=== PATIENT | female | born 1985 | race Caucasian/White ===

== ENCOUNTER 2017-01-24 09:36 | Emergency (ER) | payer OTHER ==
[2017-01-24 09:44] VITALS: BP 126/77
[2017-01-24] MEDS ORDERED: RABIES IMMUNE GLOBULIN INJ/PF 300 UNIT/2 ML SDV IM ONE (10:38)
[2017-01-24] MEDS ORDERED: RABIES VACCINE (PCEC)/PF 2.5 UNIT/1 ML KIT IM ONE (10:40)
--- NOTE | 2017-01-24 10:54 | ER Document Report ---
HPI - HPI Patient complains to provider of: exposure to rabid raccoon that her dog ate and vomited up Onset: Other - Last Tuesday Pain Level: Denies Context: 31-year-old [employer] female was sent by [facility] for rabies shots. Her dog ate a raccoon and then vomited in which she cleaned up the dog and the vomit and animal control called her and said that the raccoon was tested and was positive for rabies. The manner in which her exposure occurred was bare hands with dry skin but no open wounds. Associated Symptoms: None Exacerbated by: Denies Relieved by: Denies Similar symptoms previously: No Recently seen / treated by doctor: No - ROS ROS below otherwise negative: Yes Systems Reviewed and Negative: Yes All other systems reviewed and negative - REPRODUCTIVE LMP: 12/28/16 - DERM Skin Color: Normal Past Medical History - General Information source: Patient - Social History Smoking Status: Never Smoker Chew tobacco use (# tins/day): No Frequency of alcohol use: None Drug Abuse: None Lives with: Alone Family History: Reviewed & Not Pertinent Patient has suicidal ideation: No Patient has homicidal ideation: No - Medical History Medical History: Negative Renal/ Medical History: Denies: Hx Peritoneal Dialysis Surgical Hx: Negative Vertical Provider Document - CONSTITUTIONAL Agree With Documented VS: Yes Exam Limitations: No Limitations - INFECTION CONTROL TRAVEL OUTSIDE OF THE [place] IN LAST 30 DAYS: No - HEENT HEENT: Atraumatic, Normocephalic - NECK Neck: Supple - RESPIRATORY O2 Sat by Pulse Oximetry: 97 - MUSCULOSKELETAL/EXTREMETIES Musculoskeletal/Extremeties: MAEW, FROM, Non-Tender - NEURO Level of Consciousness: Awake, Alert - DERM Integumentary: Warm, Dry Notes: skin is normal Course - Vital Signs Vital signs: Temp Pulse Resp BP Pulse Ox 98.5 F 65 14 126/77 H 97 01/24/17 09:43 01/24/17 09:43 01/24/17 09:43 01/24/17 09:43 01/24/17 09:43 Discharge - Discharge Clinical Impression: hand exposure to rabid raccoon saliva, rabies post exposure prophylaxis Condition: Good Disposition: HOME, SELF-CARE Instructions: Rabies Prophyllaxis ([facility]) Additional Instructions: Rabavert 1 ml IM on Day 3- January 27 Day 7- January 31 Day 14- February 04 see your medical provider for follow up Please complete the patient satisfaction survey if you get one, and return it.. If you do not receive a survey, then you can go to the [facility] website, [email or web address] and place your comments about your very good care. Thank you very much. It was a pleasure being your medical provider today. Prescriptions: Rabies Vaccine (Pcec)/Pf [Rabavert Rabies Vaccine Vial] 2.5 unit IM ASDIR PRN # 3 vial PRN Reason:
== END 2017-01-24 12:00 | disposition home or self-care (01) ==
LOC: ER 09:36
DX: Z20.3 Contact with and (suspected) exposure to rabies (principal); Z23 Encounter for immunization
CPT/HCPCS: 90376; 90471; 90675; 96372; 99283